=== PATIENT | female | born 1980 | race Caucasian/White ===

== ENCOUNTER 2019-03-16 17:13 | Outpatient (CLI) | payer MEDICAID | END 2019-03-16 18:45 | disposition home or self-care (01) | LOC: OBT 17:13 → L-D 17:15 → OBT 18:45 | DX: O36.5990 Maternal care for other known or suspected poor fetal growth, unspecified trimester, not applicable or unspecified (principal); O09.523 Supervision of elderly multigravida, third trimester; Z3A.29 29 weeks gestation of pregnancy | CPT/HCPCS: 76818 ==

== ENCOUNTER 2019-05-17 05:44 | Inpatient (IN) | payer MEDICAID ==
[2019-05-17] MEDS ORDERED: LACTATED RINGER'S 1,000 ML IV (06:16)
[2019-05-17] MEDS ORDERED: OXYTOCIN 30 UNITS/LR 500 ML IV ×2 (06:30→16:30)
[2019-05-17] MEDS ORDERED: METHYLERGONOVINE 0.2 MG INJ IM (06:30)
[2019-05-17] MEDS ORDERED: BUTORPHANOL 2 MG INJ IV (06:30)
[2019-05-17] MEDS ORDERED: IBUPROFEN 600 MG TAB PO (06:30)
[2019-05-17] MEDS: LACTATED RINGER'S 1,000 ML IV (06:48)
[2019-05-17 07:04] LABS: ADD MAN DIFF? NO
[2019-05-17 07:09] LABS: BASOPHILS % 0.6 % (0.0-2.0); EOSINOPHILS # 0.1 10^3/ul (0.0-0.5); EOSINOPHILS % 1.7 % (0.0-7.0); HEMATOCRIT 39.4 % (37.0-47.0); HEMOGLOBIN 13.2 g/dl (12.0-16.0); LYMPHOCYTES # 1.8 10^3/ul (0.8-2.9); LYMPHOCYTES % 24.7 % (15.0-51.0); MEAN CORPUSCULAR HEMOGLOBIN 29.4 pg (29.0-33.0); MEAN CORPUSCULAR HGB CONC 33.5 g/dl (32.0-37.0); MEAN CORPUSCULAR VOLUME 87.8 fl (82.0-101.0); MEAN PLATELET VOLUME 11.5 fl (7.4-10.4); MONOCYTE # 0.5 10^3/ul (0.3-0.9); MONOCYTES % 6.7 % (0.0-11.0); NEUTROPHIL # 4.8 10^3/ul (1.6-7.5); NEUTROPHILS % 65.7 % (39.0-77.0); PLATELET COUNT 160 10^3/UL (140-415); RED BLOOD COUNT 4.49 10^6/ul (4.20-5.40); RED CELL DISTRIBUTION WIDTH 16.4 % (11.5-14.5)
[2019-05-17 07:09] LABS: WHITE BLOOD COUNT 7.3 10^3/ul (4.8-10.8)
[2019-05-17 07:13] LABS: ADD UMIC YES; UR ASCORBIC ACID NEGATIVE (NEGATIVE); UR BACTERIA FEW /HPF (NONE SEEN); UR BILIRUBIN (Dip) NEGATIVE (NEGATIVE); UR BLOOD (Dip) 3+ mg/dL (NEGATIVE); UR CLARITY CLOUDY (CLEAR); UR COLOR YELLOW (YELLOW); UR GLUCOSE (Dip) NEGATIVE (NEGATIVE); UR KETONES (Dip) NEGATIVE (NEGATIVE); UR LEUKOCYTE ESTERASE (Dip) 3+ Leu/ul (NEGATIVE); UR NITRITE (Dip) NEGATIVE (NEGATIVE); UR RBC 30 /HPF (0-5); UR SPECIFIC GRAVITY (Dip) 1.009 (1.003-1.030); UR SQUAMOUS EPITHELIAL CELL MODERATE /HPF (FEW); UR TOTAL PROTEIN (Dip) 1+ mg/dl (NEGATIVE); UR UROBILINOGEN (Dip) NEGATIVE (NEGATIVE); UR WBC 50 /HPF (0-5)
[2019-05-17 07:29] LABS: INR 0.84; PROTIME 11.6 Sec (11.9-14.9); PT RATIO 0.9
[2019-05-17 07:36] LABS: ALANINE AMINOTRANSFERASE 22 IU/L (13-69); ALBUMIN 3.3 g/dl (3.3-4.9); ALKALINE PHOSPHATASE 144 IU/L (42-121); ANION GAP 8 (5-13); ASPARTATE AMINO TRANSFERASE 19 IU/L (15-46); BILIRUBIN,INDIRECT 0.6 mg/dl (0-1.1); BILIRUBIN,TOTAL 0.6 mg/dl (0.2-1.3); BLOOD UREA NITROGEN 10 mg/dl (7-20); CALCIUM 9.4 mg/dl (8.4-10.2); CARBON DIOXIDE 22 mmol/L (21-31); CHLORIDE 105 mmol/L (97-110); CREATININE 0.46 mg/dl (0.44-1.00); Estimated GFR > 60 mL/min (>60); GLUCOSE 88 mg/dl (70-220); POTASSIUM 4.2 mmol/L (3.5-5.1); SODIUM 135 mmol/L (135-144); TOTAL PROTEIN 6.3 g/dl (6.1-8.1); URIC ACID 6.1 mg/dl (3.1-7.9)
[2019-05-17 08:27] LABS: HEPATITIS B SURFACE ANTIGEN NEGATIVE (NEGATIVE)
[2019-05-17] MEDS: BUTORPHANOL 2 MG INJ IV (10:13)
[2019-05-17] MEDS: LIDOCAINE 1% (MPF) 30 ML INJ INJ (13:48)
[2019-05-17] MEDS: OXYTOCIN 30 UNITS/LR 500 ML IV ×3 (13:51→16:32)
[2019-05-17] MEDS: MISOPROSTOL 200 MCG TAB PR (13:54)
[2019-05-17] MEDS: CARBOPROST 250 MCG INJ IM ×2 (14:01→14:16)
[2019-05-17] MEDS ORDERED: CEFAZOLIN 2 GM/50 ML (PMX) 50 ML IVPB (14:16)
[2019-05-17] MEDS: TRANEXAMIC ACID 1GM/100ML(PMX) 100 ML IVPB (14:35)
[2019-05-17 14:48] LABS: RAPID PLASMA REAGIN NONREACTIVE (NR)
[2019-05-17] MEDS ORDERED: CA GLUCONATE (GM) 10% 10ML INJ IV (15:00)
[2019-05-17] MEDS: CEFAZOLIN 2 GM/50 ML (PMX) 50 ML IVPB (15:05)
[2019-05-17] MEDS: MAGNESIUM SULFATE 4 GM/100 ML 100 ML IV (15:11)
[2019-05-17] MEDS: MAGNESIUM SULFATE 20 GM/500 ML 500 ML IV (15:37)
[2019-05-17] MEDS ORDERED: CARBOPROST 250 MCG INJ IM (16:30)
[2019-05-17] MEDS ORDERED: DIBUCAINE 1% 30 GM OINT TOP (16:30)
[2019-05-17] MEDS ORDERED: HYDROCODONE/APAP (5/325) TAB PO (16:30)
[2019-05-17] MEDS ORDERED: ACETAMINOPHEN 325 MG TAB PO (16:30)
[2019-05-17] MEDS ORDERED: MISOPROSTOL 200 MCG TAB PR (16:30)
[2019-05-17] MEDS: BENZOCAINE 20% 56 ML SPRAY TOP (17:02)
[2019-05-17] MEDS: WITCH HAZEL/GLYCERIN PAD PR (17:02)
[2019-05-17] MEDS: IBUPROFEN 600 MG TAB PO (17:03)
[2019-05-17 19:50] LABS: MAGNESIUM 3.8 mg/dl (1.7-2.5)
[2019-05-17] MEDS: SENNA/DOCUSATE NA (8.6MG/50MG) TAB PO (21:00)
[2019-05-17] MEDS: LACTATED RINGER'S 1,000 ML IV* (23:18)
[2019-05-18] MEDS: IBUPROFEN 600 MG TAB PO ×5 (00:20→23:40)
[2019-05-18] MEDS: LACTATED RINGER'S 1,000 ML IV* ×2 (00:22→12:47)
[2019-05-18 01:14] LABS: MAGNESIUM 4.3 mg/dl (1.7-2.5)
[2019-05-18] MEDS: MAGNESIUM SULFATE 20 GM/500 ML 500 ML IV ×2 (02:27→12:46)
[2019-05-18 07:41] LABS: ADD MAN DIFF? NO
[2019-05-18 07:49] LABS: WHITE BLOOD COUNT 9.7 10^3/ul (4.8-10.8)
[2019-05-18 07:49] LABS: BASOPHILS % 0.2 % (0.0-2.0); EOSINOPHILS % 0.4 % (0.0-7.0); HEMATOCRIT 30.1 % (37.0-47.0); HEMOGLOBIN 10.1 g/dl (12.0-16.0); LYMPHOCYTES # 1.6 10^3/ul (0.8-2.9); LYMPHOCYTES % 15.9 % (15.0-51.0); MEAN CORPUSCULAR HEMOGLOBIN 29.7 pg (29.0-33.0); MEAN CORPUSCULAR HGB CONC 33.6 g/dl (32.0-37.0); MEAN CORPUSCULAR VOLUME 88.5 fl (82.0-101.0); MEAN PLATELET VOLUME 11.9 fl (7.4-10.4); MONOCYTE # 0.8 10^3/ul (0.3-0.9); MONOCYTES % 8.1 % (0.0-11.0); NEUTROPHIL # 7.3 10^3/ul (1.6-7.5); NEUTROPHILS % 74.9 % (39.0-77.0); PLATELET COUNT 151 10^3/UL (140-415); RED CELL DISTRIBUTION WIDTH 16.6 % (11.5-14.5)
[2019-05-18 08:31] LABS: MAGNESIUM 4.8 mg/dl (1.7-2.5)
[2019-05-18] MEDS: SENNA/DOCUSATE NA (8.6MG/50MG) TAB PO ×2 (08:40→21:58)
[2019-05-18 13:47] LABS: MAGNESIUM 4.5 mg/dl (1.7-2.5)
[2019-05-18] MEDS: FERROUS SULFATE (EC) 325 MG TAB PO (21:58)
[2019-05-19] MEDS: IBUPROFEN 600 MG TAB PO ×4 (06:00→23:44)
[2019-05-19] MEDS: DIPHTH/TET/ACEL PERTUSS (ADULT) 0.5 ML VIAL IM* (09:00)
[2019-05-19] MEDS: SENNA/DOCUSATE NA (8.6MG/50MG) TAB PO ×2 (10:21→21:28)
[2019-05-19] MEDS: FERROUS SULFATE (EC) 325 MG TAB PO ×2 (10:21→21:29)
[2019-05-20] MEDS: IBUPROFEN 600 MG TAB PO ×3 (05:43→17:34)
[2019-05-20] MEDS: SENNA/DOCUSATE NA (8.6MG/50MG) TAB PO (09:02)
[2019-05-20] MEDS: FERROUS SULFATE (EC) 325 MG TAB PO (09:02)
== END 2019-05-20 18:55 | disposition home or self-care (01) | DRG 807 ==
LOC: OBT 05:44 → L-D 05:45 → OBT 06:16 → L-D 06:16 → PP1 16:11
PROC: 10E0XZZ Delivery of Products of Conception, External Approach (ICD-10-PCS; principal; 2019-05-17)
PROC: 0KQM0ZZ Repair Perineum Muscle, Open Approach (ICD-10-PCS; 2019-05-17)
DX: O14.14 Severe pre-eclampsia complicating childbirth (principal); Z37.0 Single live birth; O62.2 Other uterine inertia; Z3A.38 38 weeks gestation of pregnancy; O70.1 Second degree perineal laceration during delivery; O13.4 Gestational [pregnancy-induced] hypertension without significant proteinuria, complicating childbirth; O24.429 Gestational diabetes mellitus in childbirth, unspecified control
CPT/HCPCS: 62322; 76816; 76818; 80053; 81001; 82962; 83735; 84560; 85025; 85610; 85730; 86592; 86850; 86900; 86901; 87340; 99464